=== PATIENT | female | born 1945 | race Caucasian/White ===

== ENCOUNTER → 2018-09-27 | Outpatient (CLI) | payer MEDICARE, OTHER ==
[~2018-09-27] MED LIST: CYMBALTA20 MG PO; CYMBALTA60 MG PO; MOTRIN400 MG PO; PRILOSEC40 MG PO; RAMIPRIL1.25 MG PO; TRAZODONE50 MG PO
== END | disposition home or self-care (01) ==
LOC: CT 10:58
DX: K80.20 Calculus of gallbladder without cholecystitis without obstruction (principal); K57.30 Diverticulosis of large intestine without perforation or abscess without bleeding

== ENCOUNTER → 2018-10-24 | Outpatient (CLI) | payer MEDICARE, OTHER | END | disposition home or self-care (01) | LOC: US 09:57 | DX: N85.8 Other specified noninflammatory disorders of uterus (principal); R10.2 Pelvic and perineal pain ==

== ENCOUNTER → 2020-04-02 | Outpatient (CLI) | payer MEDICARE | END | disposition home or self-care (01) | LOC: MAMMO 14:33 | DX: Z12.31 Encounter for screening mammogram for malignant neoplasm of breast (principal) ==

== ENCOUNTER 2020-09-23 11:43 | Emergency (ER) | payer MEDICARE ==
[~2020-09-23] VITALS: Wt 81.6 kg
[~2020-09-23 11:43] MED LIST changes: +TRAZODONE100 MG PO; -TRAZODONE50 MG PO
[2020-09-23 12:12] LABS: BASO # 0.1 10*3/uL (0.0-0.1); BASO % 0.7 % (0.0-1.0); EOS # 0.3 10*3/uL (0.0-0.4); EOS % 3.9 % (1.0-4.0); LYMPH # 2.4 10*3/uL (1.3-4.4); MEAN CELL VOLUME 89.2 fl (81.0-99.0); MEAN CORPUSCULAR HGB 29.1 pg (27.0-31.0); MEAN CORPUSCULAR HGB CONC 32.6 g/dl (33.0-37.0); MEAN PLATELET VOLUME 8.7 fl (9.6-12.3); MONO # 0.8 10*3/uL (0.1-1.0); MONO % 9.5 % (3.0-9.0); NEUT # 4.5 10*3/uL (2.3-7.9); NEUT % 55.3 % (47.0-73.0); PLATELET COUNT AUTOMATED 363 10*3/uL (130-400); RED BLOOD COUNT 4.71 10*6/uL (4.10-5.10); RED CELL DISTRI WIDTH 12.9 % (0-14.5); WHITE BLOOD COUNT 8.1 10*3/uL (4.8-10.8)
[2020-09-23 12:26] LABS: ACT PARTIAL THROMBO TIME 25.5 SECONDS (20.0-32.1); INTERNATIONAL NORM RATIO 1.2 (2.0-3.5)
[2020-09-23 12:34] LABS: ALBUMIN 3.6 gm/dl (3.1-4.5); ALKALINE PHOSPHATASE 87 U/L (45-117); BUN 27 mg/dl (7-24); CHLORIDE 109 mmol/L (98-107); CREATININE 0.99 mg/dL (0.55-1.02); POTASSIUM 4.3 mmol/L (3.5-5.1); SGOT/AST 21 IU/L (3-35); SGPT/ALT 24 U/L (12-78); SODIUM 139 mmol/L (136-145); TOTAL PROTEIN 7.5 gm/dL (6.4-8.2)
[2020-09-23 12:35] LABS: TROPONIN I < 0.015 ng/ml (<0.045)
[2020-09-23] MEDS ORDERED: ULTRAM50 MG PO (15:21)
[2020-11-01] MEDS ORDERED: LEVOTHYROXINE25 MCG PO (09:48)
[2020-11-01] MEDS ORDERED: HYDROCODON-ACE1 EACH PO (09:49)
[2020-11-01] MEDS ORDERED: ZESTRIL10 MG PO (09:50)
[2020-11-01] MEDS ORDERED: Coumadin3 MG PO (09:50)
== END 2020-09-23 15:29 | disposition home or self-care (01) ==
LOC: ED 11:43
PROVIDERS: Emergency Medicine
DX: G89.29 Other chronic pain (principal); R07.89 Other chest pain; R06.02 Shortness of breath; I10 Essential (primary) hypertension; Z86.711 Personal history of pulmonary embolism; Z79.01 Long term (current) use of anticoagulants; M79.7 Fibromyalgia; Z88.0 Allergy status to penicillin; Z88.2 Allergy status to sulfonamides; Z88.8 Allergy status to other drugs, medicaments and biological substances; Z79.899 Other long term (current) drug therapy

== ENCOUNTER → 2020-11-01 | Outpatient (CLI) | payer MEDICARE ==
[~2020-11-01] MED LIST changes: +CIPRO500 MG PO; +COLACE100 MG PO; +Coumadin3 MG PO; +ELIQUIS2.5 M1 PO; +HYDROCODON-ACE1 EACH PO; +LEVOTHYROXINE25 MCG PO; +PANTOPRAZOLE SO40 MG PO; +PERCOCET 5-3251 EACH PO; +PHENERGAN25 M3 PO; +ULTRAM50 MG PO; +ZESTRIL10 MG PO; +ZOFRAN4 MG PO
== END | disposition home or self-care (01) ==
LOC: CARD 00:11
PROVIDERS: ATTEND Internal Medicine Cardiovascular Disease
DX: R07.9 Chest pain, unspecified (principal); R94.31 Abnormal electrocardiogram [ECG] [EKG]

== ENCOUNTER 2020-12-28 19:14 | Inpatient (IN) | payer MEDICARE ==
[~2020-12-28] VITALS: Ht 165.1 cm; Wt 91.8 kg
[~2020-12-28 19:14] MED LIST changes: -CIPRO500 MG PO; -COLACE100 MG PO; -ELIQUIS2.5 M1 PO; -PANTOPRAZOLE SO40 MG PO; -PERCOCET 5-3251 EACH PO; -PHENERGAN25 M3 PO; -ZOFRAN4 MG PO
[2020-12-28 19:15] VITALS: BP 162/60
[2020-12-28 20:03] LABS: HEMATOCRIT 43.8 % (37.0-47.0); MEAN CORPUSCULAR HGB 29.1 pg (27.0-31.0); MEAN CORPUSCULAR HGB CONC 32.6 g/dl (33.0-37.0); MEAN PLATELET VOLUME 8.9 fl (9.6-12.3); PLATELET COUNT AUTOMATED 298 10*3/uL (130-400); RED BLOOD COUNT 4.92 10*6/uL (4.10-5.10); RED CELL DISTRI WIDTH 13.3 % (0-14.5); WHITE BLOOD COUNT 12.4 10*3/uL (4.8-10.8)
[2020-12-28 20:13] LABS: INTERNATIONAL NORM RATIO 2.7 (2.0-3.5)
[2020-12-28 20:19] LABS: ALBUMIN 3.2 gm/dl (3.1-4.5); ALKALINE PHOSPHATASE 81 U/L (45-117); BUN 26 mg/dl (7-24); CHLORIDE 108 mmol/L (98-107); CREATININE 1.04 mg/dL (0.55-1.02); LIPASE 53 U/L (73-393); SGOT/AST 13 IU/L (3-35); SGPT/ALT 20 U/L (12-78); SODIUM 139 mmol/L (136-145); TOTAL PROTEIN 6.7 gm/dL (6.4-8.2)
[2020-12-28 20:20] LABS: ATYPICAL LYMPHS 1 % (0-0); PLATELET SUFFICIENCY NORMAL (NORMAL); TOTAL CELLS COUNTED 100 #CELLS
[2020-12-28 20:50] VITALS: BP 136/64
[2020-12-28 21:06] LABS: BILIRUBIN 1+ (Negative); BLOOD 1+ (Negative); CLARITY Cloudy (Clear); COLOR Dark Yellow (Yellow); GLUCOSE Negative (Negative); KETONE Trace (Negative); LEUKO ESTERASE 1+ (Negative); NITRITE Positive (Negative); PH 5.5 (4.5-8.0); SPECIFIC GRAVITY 1.025 (1.001-1.030)
[2020-12-28 21:13] LABS: BACTERIA 2+; MUCOUS TRACE
[2020-12-28 22:00] VITALS: BP 153/69
[2020-12-29] VITALS: BP 132/54
[2020-12-29 02:46] LABS: BASO % 0.2 % (0.0-1.0); EOS # 0.1 10*3/uL (0.0-0.4); EOS % 1.5 % (1.0-4.0); LYMPH # 0.7 10*3/uL (1.3-4.4); LYMPH % 8.9 % (27.0-41.0); MEAN CELL VOLUME 89.9 fl (81.0-99.0); MEAN CORPUSCULAR HGB 29.2 pg (27.0-31.0); MEAN CORPUSCULAR HGB CONC 32.5 g/dl (33.0-37.0); MEAN PLATELET VOLUME 8.7 fl (9.6-12.3); MONO # 0.5 10*3/uL (0.1-1.0); MONO % 5.6 % (3.0-9.0); NEUT # 6.9 10*3/uL (2.3-7.9); NEUT % 83.4 % (47.0-73.0); PLATELET COUNT AUTOMATED 257 10*3/uL (130-400); RED BLOOD COUNT 4.45 10*6/uL (4.10-5.10); RED CELL DISTRI WIDTH 13.4 % (0-14.5); WHITE BLOOD COUNT 8.2 10*3/uL (4.8-10.8)
[2020-12-29 03:01] LABS: ALBUMIN 2.9 gm/dl (3.1-4.5); ALKALINE PHOSPHATASE 71 U/L (45-117); BUN 21 mg/dl (7-24); CHLORIDE 108 mmol/L (98-107); CHOLESTEROL 146 mg/dL (<200); CREATININE 0.87 mg/dL (0.55-1.02); HDL CHOLESTEROL 61 mg/dl (40-60); LDL CHOLESTEROL 56 mg/dL (9-159); POTASSIUM 3.8 mmol/L (3.5-5.1); SGOT/AST 14 IU/L (3-35); SGPT/ALT 22 U/L (12-78); SODIUM 139 mmol/L (136-145); TOTAL PROTEIN 6.2 gm/dL (6.4-8.2); TRIGLYCERIDES 143 mg/dl (<150); VLDL CHOLESTEROL 29 mg/dL (6-40)
[2020-12-29 03:02] LABS: ACT PARTIAL THROMBO TIME 46.7 SECONDS (20.0-32.1); FREE T4 0.93 ng/dl (0.76-1.46); INTERNATIONAL NORM RATIO 2.7 (2.0-3.5)
[2020-12-29] MEDS ORDERED: PANTOPRAZOLE SO40 MG PO (06:07)
[2020-12-29 06:26] LABS: VITAMIN D, 25-HYDROXY 31.5 ng/mL (30-100)
[2020-12-29 08:00] VITALS: BP 137/49
[2020-12-29 12:00] VITALS: BP 118/50
[2020-12-29 16:00] VITALS: BP 101/49
[2020-12-29 20:00] VITALS: BP 153/66
[2020-12-30] VITALS: BP 133/54
[2020-12-30 06:25] LABS: BASO % 0.5 % (0.0-1.0); EOS # 0.3 10*3/uL (0.0-0.4); EOS % 4.7 % (1.0-4.0); HEMATOCRIT 39.7 % (37.0-47.0); LYMPH # 1.4 10*3/uL (1.3-4.4); LYMPH % 23.3 % (27.0-41.0); MEAN CELL VOLUME 91.1 fl (81.0-99.0); MEAN CORPUSCULAR HGB 29.4 pg (27.0-31.0); MEAN CORPUSCULAR HGB CONC 32.2 g/dl (33.0-37.0); MEAN PLATELET VOLUME 9.7 fl (9.6-12.3); MONO # 0.6 10*3/uL (0.1-1.0); MONO % 10.5 % (3.0-9.0); NEUT # 3.5 10*3/uL (2.3-7.9); NEUT % 60.5 % (47.0-73.0); PLATELET COUNT AUTOMATED 255 10*3/uL (130-400); RED BLOOD COUNT 4.36 10*6/uL (4.10-5.10); RED CELL DISTRI WIDTH 13.7 % (0-14.5); WHITE BLOOD COUNT 5.8 10*3/uL (4.8-10.8)
[2020-12-30 06:32] LABS: BUN 17 mg/dl (7-24); CHLORIDE 110 mmol/L (98-107); CREATININE 0.85 mg/dL (0.55-1.02); POTASSIUM 4.2 mmol/L (3.5-5.1); SODIUM 140 mmol/L (136-145)
[2020-12-30 06:58] LABS: INTERNATIONAL NORM RATIO 1.8 (2.0-3.5)
[2020-12-30 08:00] VITALS: BP 132/53
[2020-12-30 12:00] VITALS: BP 142/79
[2021-02-04] MEDS ORDERED: ELIQUIS2.5 M1 PO (11:25)
[2021-02-06] MEDS ORDERED: ZOFRAN4 MG PO (09:18)
[2021-02-06] MEDS ORDERED: COLACE100 MG PO (09:18)
[2021-02-06] MEDS ORDERED: PERCOCET 5-3251 EACH PO (09:18)
== END 2020-12-30 15:24 | disposition home or self-care (01) | DRG 872 ==
LOC: ED 19:14 → 5E 21:34 → EDHOLD 21:34 → 5E 22:15
PROVIDERS: Internal Medicine; Student in an Organized Health Care Education/Training Program; ADMIT Internal Medicine; ATTEND Internal Medicine
DX: A41.9 Sepsis, unspecified organism (principal); N39.0 Urinary tract infection, site not specified; R65.20 Severe sepsis without septic shock; E03.9 Hypothyroidism, unspecified; K21.9 Gastro-esophageal reflux disease without esophagitis; K80.20 Calculus of gallbladder without cholecystitis without obstruction; E78.2 Mixed hyperlipidemia; M79.7 Fibromyalgia; I10 Essential (primary) hypertension; G47.00 Insomnia, unspecified; Z90.49 Acquired absence of other specified parts of digestive tract; Z88.0 Allergy status to penicillin; Z88.2 Allergy status to sulfonamides; Z88.8 Allergy status to other drugs, medicaments and biological substances; Z79.1 Long term (current) use of non-steroidal anti-inflammatories (NSAID); Z79.899 Other long term (current) drug therapy; Z79.01 Long term (current) use of anticoagulants; Z68.33 Body mass index [BMI] 33.0-33.9, adult

== ENCOUNTER 2021-01-02 11:14 | Emergency (ER) | payer MEDICARE ==
[~2021-01-02] VITALS: Ht 165.1 cm; Wt 86.2 kg
[~2021-01-02 11:14] MED LIST changes: +PANTOPRAZOLE SO40 MG PO
[2021-01-02 11:52] LABS: BASO % 0.6 % (0.0-1.0); EOS # 0.3 10*3/uL (0.0-0.4); LYMPH # 2.5 10*3/uL (1.3-4.4); LYMPH % 38.2 % (27.0-41.0); MEAN CELL VOLUME 89.3 fl (81.0-99.0); MEAN CORPUSCULAR HGB CONC 32.5 g/dl (33.0-37.0); MEAN PLATELET VOLUME 8.7 fl (9.6-12.3); MONO # 0.4 10*3/uL (0.1-1.0); MONO % 6.6 % (3.0-9.0); NEUT # 3.3 10*3/uL (2.3-7.9); NEUT % 50.3 % (47.0-73.0); PLATELET COUNT AUTOMATED 281 10*3/uL (130-400); RED BLOOD COUNT 4.48 10*6/uL (4.10-5.10); RED CELL DISTRI WIDTH 13.2 % (0-14.5); WHITE BLOOD COUNT 6.5 10*3/uL (4.8-10.8)
[2021-01-02 12:03] LABS: ACT PARTIAL THROMBO TIME 41.6 SECONDS (20.0-32.1); INTERNATIONAL NORM RATIO 2.2 (2.0-3.5)
[2021-01-02 12:08] LABS: ALBUMIN 3.3 gm/dl (3.1-4.5); ALKALINE PHOSPHATASE 74 U/L (45-117); BUN 18 mg/dl (7-24); CHLORIDE 107 mmol/L (98-107); CREATININE 0.94 mg/dL (0.55-1.02); LIPASE 75 U/L (73-393); POTASSIUM 5.1 mmol/L (3.5-5.1); SGOT/AST 14 IU/L (3-35); SGPT/ALT 24 U/L (12-78); SODIUM 138 mmol/L (136-145); TOTAL PROTEIN 6.7 gm/dL (6.4-8.2); TROPONIN I < 0.015 ng/ml (<0.045)
[2021-01-02] MEDS ORDERED: PERCOCET 5-3251 EACH PO (15:03)
[2021-01-02] MEDS ORDERED: CIPRO500 MG PO (15:03)
[2021-01-02] MEDS ORDERED: PHENERGAN25 M3 PO (15:03)
[2021-02-04] MEDS ORDERED: ELIQUIS2.5 M1 PO (11:25)
[2021-02-06] MEDS ORDERED: PERCOCET 5-3251 EACH PO (09:18)
[2021-02-06] MEDS ORDERED: COLACE100 MG PO (09:18)
[2021-02-06] MEDS ORDERED: ZOFRAN4 MG PO (09:18)
== END 2021-01-02 15:08 | disposition home or self-care (01) ==
LOC: ED 11:14
PROVIDERS: Emergency Medicine
DX: N39.0 Urinary tract infection, site not specified (principal); Z88.0 Allergy status to penicillin; Z88.2 Allergy status to sulfonamides; Z88.8 Allergy status to other drugs, medicaments and biological substances; Z79.899 Other long term (current) drug therapy; Z79.01 Long term (current) use of anticoagulants; Z90.49 Acquired absence of other specified parts of digestive tract; Z98.890 Other specified postprocedural states

== ENCOUNTER → 2021-02-03 | Outpatient (CLI) | payer MEDICARE ==
[~2021-02-03] MED LIST changes: +CIPRO500 MG PO; +COLACE100 MG PO; +ELIQUIS2.5 M1 PO; +PERCOCET 5-3251 EACH PO; +PHENERGAN25 M3 PO; +ZOFRAN4 MG PO
== END | disposition home or self-care (01) ==
LOC: COVID19 12:49
PROVIDERS: ATTEND Internal Medicine
DX: Z20.822 Contact with and (suspected) exposure to COVID-19 (principal)

== ENCOUNTER → 2021-02-06 | Day surgery (SDC) | payer MEDICARE ==
[2021-02-04 11:45] VITALS: BP 139/61
[~2021-02-06] VITALS: Ht 165.1 cm; Wt 81.6 kg
[2021-02-06 07:28] VITALS: BP 130/79
[2021-02-06 09:23] VITALS: BP 159/66
[2021-02-06 09:38] VITALS: BP 143/64
[2021-02-06 09:53] VITALS: BP 139/61
[2021-02-06 10:08] VITALS: BP 148/59
[2021-02-06 10:23] VITALS: BP 141/60
== END | disposition home or self-care (01) ==
LOC: SDC 02-03 13:15
PROVIDERS: ATTEND Surgery
DX: K80.12 Calculus of gallbladder with acute and chronic cholecystitis without obstruction (principal); I10 Essential (primary) hypertension; M79.7 Fibromyalgia; E03.9 Hypothyroidism, unspecified; K59.00 Constipation, unspecified; Z86.711 Personal history of pulmonary embolism; Z96.651 Presence of right artificial knee joint; Z98.890 Other specified postprocedural states; Z88.0 Allergy status to penicillin; Z88.2 Allergy status to sulfonamides; Z88.8 Allergy status to other drugs, medicaments and biological substances

== ENCOUNTER 2021-04-23 11:21 | Emergency (ER) | payer MEDICARE ==
[~2021-04-23] VITALS: Ht 165.1 cm; Wt 95.3 kg
[2021-04-23 11:39] LABS: BASO # 0.1 10*3/uL (0.0-0.1); BASO % 0.9 % (0.0-1.0); EOS # 0.3 10*3/uL (0.0-0.4); EOS % 3.4 % (1.0-4.0); HEMATOCRIT 42.2 % (37.0-47.0); LYMPH # 2.5 10*3/uL (1.3-4.4); LYMPH % 32.5 % (27.0-41.0); MEAN CELL VOLUME 90.4 fl (81.0-99.0); MEAN CORPUSCULAR HGB 29.8 pg (27.0-31.0); MEAN CORPUSCULAR HGB CONC 32.9 g/dl (33.0-37.0); MEAN PLATELET VOLUME 8.8 fl (9.6-12.3); MONO # 0.6 10*3/uL (0.1-1.0); MONO % 7.9 % (3.0-9.0); NEUT # 4.2 10*3/uL (2.3-7.9); NEUT % 54.8 % (47.0-73.0); PLATELET COUNT AUTOMATED 310 10*3/uL (130-400); RED BLOOD COUNT 4.67 10*6/uL (4.10-5.10); RED CELL DISTRI WIDTH 13.7 % (0-14.5); WHITE BLOOD COUNT 7.7 10*3/uL (4.8-10.8)
[2021-04-23 11:48] LABS: INTERNATIONAL NORM RATIO 0.9 (2.0-3.5)
[2021-04-23 12:00] LABS: ALBUMIN 3.6 gm/dl (3.1-4.5); ALKALINE PHOSPHATASE 98 U/L (45-117); BUN 21 mg/dl (7-24); CHLORIDE 108 mmol/L (98-107); CREATININE 0.95 mg/dL (0.55-1.02); POTASSIUM 4.3 mmol/L (3.5-5.1); SGOT/AST 10 IU/L (3-35); SGPT/ALT 16 U/L (12-78); SODIUM 135 mmol/L (136-145); TOTAL PROTEIN 7.2 gm/dL (6.4-8.2)
[2021-04-23 12:01] LABS: TROPONIN I < 0.015 ng/ml (<0.045)
[2021-04-23] MEDS ORDERED: Coumadin3 MG PO (12:53)
== END 2021-04-23 13:00 | disposition home or self-care (01) ==
LOC: ED 11:21
PROVIDERS: Family Medicine
DX: R07.89 Other chest pain (principal); T45.515A Adverse effect of anticoagulants, initial encounter; Z98.890 Other specified postprocedural states; Z90.49 Acquired absence of other specified parts of digestive tract; Z79.899 Other long term (current) drug therapy; Z88.0 Allergy status to penicillin; Z88.2 Allergy status to sulfonamides; Z88.6 Allergy status to analgesic agent; Z86.711 Personal history of pulmonary embolism; Y92.89 Other specified places as the place of occurrence of the external cause

== ENCOUNTER → 2023-09-17 | Outpatient (CLI) | payer MEDICARE | END | disposition home or self-care (01) | LOC: RAD 09:20 | PROVIDERS: ATTEND Internal Medicine | DX: Z13.820 Encounter for screening for osteoporosis (principal); S72.092A Other fracture of head and neck of left femur, initial encounter for closed fracture; M81.0 Age-related osteoporosis without current pathological fracture; X58.XXXA Exposure to other specified factors, initial encounter; Y93.89 Activity, other specified; Y92.89 Other specified places as the place of occurrence of the external cause; Y99.8 Other external cause status ==

== ENCOUNTER 2024-02-01 14:33 | Emergency (ER) | payer MEDICARE ==
[2024-02-01 14:59] LABS: BASO # 0.1 10*3/uL (0.0-0.1); BASO % 0.8 % (0.0-1.0); EOS # 0.2 10*3/uL (0.0-0.4); HEMATOCRIT 41.6 % (37.0-47.0); LYMPH # 2.8 10*3/uL (1.3-4.4); LYMPH % 38.5 % (27.0-41.0); MEAN CELL VOLUME 93.3 fl (81.0-99.0); MEAN CORPUSCULAR HGB 29.8 pg (27.0-31.0); MEAN PLATELET VOLUME 8.9 fl (9.6-12.3); MONO # 0.6 10*3/uL (0.1-1.0); MONO % 7.7 % (3.0-9.0); NEUT # 3.6 10*3/uL (2.3-7.9); NEUT % 49.6 % (47.0-73.0); PLATELET COUNT AUTOMATED 280 10*3/uL (130-400); RED BLOOD COUNT 4.46 10*6/uL (4.10-5.10); RED CELL DISTRI WIDTH 13.1 % (0-14.5); WHITE BLOOD COUNT 7.3 10*3/uL (4.8-10.8)
[2024-02-01 15:10] LABS: ACT PARTIAL THROMBO TIME 25.9 SECONDS (20.0-32.1)
[2024-02-01 15:32] LABS: ALKALINE PHOSPHATASE 85 U/L (46-116); BUN 19 mg/dl (9-23); CHLORIDE 105 mmol/L (98-107); LIPASE 37 U/L (12-53); SGPT/ALT 8 U/L (5-49); TOTAL PROTEIN 6.6 gm/dL (6.0-8.0)
[2024-02-01] MEDS ORDERED: diphenhydrAMINE hydrochloride 50 MG/ML VIAL IV ONE (15:35)
[2024-02-01] MEDS ORDERED: Dexamethasone Sodium Phospha 20 MG/5 ML VIAL IV ONE (15:35)
[2024-02-01] MEDS ORDERED: Acetaminophen/Hydrocodone ES 7.5/325 tablet PO ONE (16:00)
== END 2024-02-01 17:24 | disposition home or self-care (01) ==
LOC: ED 14:33
PROVIDERS: Internal Medicine
DX: R07.89 Other chest pain (principal); T50.905A Adverse effect of unspecified drugs, medicaments and biological substances, initial encounter; R06.02 Shortness of breath; Z88.0 Allergy status to penicillin; Z88.2 Allergy status to sulfonamides; Z88.8 Allergy status to other drugs, medicaments and biological substances; Z79.01 Long term (current) use of anticoagulants; Z79.899 Other long term (current) drug therapy; Z98.890 Other specified postprocedural states; Z90.49 Acquired absence of other specified parts of digestive tract; Z96.651 Presence of right artificial knee joint; Y92.89 Other specified places as the place of occurrence of the external cause

== ENCOUNTER 2024-06-19 10:15 | Observation (INO) | payer MEDICARE ==
[~2024-06-19] VITALS: Ht 165.1 cm; Wt 94.5 kg
[2024-06-19 10:18] VITALS: BP 149/50
[2024-06-19] MEDS ORDERED: SODIUM CHLORIDE 0.9% 1,000 ML IV ONE (10:30)
[2024-06-19 10:51] LABS: BASO # 0.1 10*3/uL (0.0-0.1); BASO % 1.1 % (0.0-1.0); EOS # 0.3 10*3/uL (0.0-0.4); HEMATOCRIT 40.8 % (37.0-47.0); LYMPH # 2.1 10*3/uL (1.3-4.4); LYMPH % 34.7 % (27.0-41.0); MEAN CELL VOLUME 93.2 fl (81.0-99.0); MEAN CORPUSCULAR HGB 29.9 pg (27.0-31.0); MEAN CORPUSCULAR HGB CONC 32.1 g/dl (33.0-37.0); MEAN PLATELET VOLUME 10.3 fl (9.6-12.3); MONO # 0.6 10*3/uL (0.1-1.0); NEUT # 3.1 10*3/uL (2.3-7.9); NEUT % 49.7 % (47.0-73.0); PLATELET COUNT AUTOMATED 324 10*3/uL (130-400); RED BLOOD COUNT 4.38 10*6/uL (4.10-5.10); RED CELL DISTRI WIDTH 13.4 % (0-14.5); WHITE BLOOD COUNT 6.1 10*3/uL (4.8-10.8)
[2024-06-19 11:05] LABS: BILIRUBIN Negative (Negative); BLOOD Negative (Negative); CLARITY Cloudy (Clear); COLOR Yellow (Yellow); GLUCOSE Negative (Negative); KETONE Trace (Negative); LEUKO ESTERASE 1+ (Negative); NITRITE Negative (Negative); PH 5.5 (4.5-8.0); SPECIFIC GRAVITY 1.025 (1.001-1.030)
[2024-06-19 11:13] LABS: BACTERIA 2+; EPITHELIAL CELLS 16-20; MUCOUS 1+
[2024-06-19] MEDS ORDERED: HYDROCODONE-AC1 EAC2 PO (11:32)
[2024-06-19] MEDS ORDERED: NEURONTIN300 MG PO (11:33)
[2024-06-19] MEDS ORDERED: MELOXICAM15 MG PO (11:34)
[2024-06-19] MEDS ORDERED: VITAMIN D250 MCG PO (11:37)
[2024-06-19 11:38] LABS: ACT PARTIAL THROMBO TIME 25.9 SECONDS (20.0-32.1)
[2024-06-19 11:48] LABS: ALKALINE PHOSPHATASE 87 U/L (46-116); BUN 18 mg/dl (9-23); CHLORIDE 107 mmol/L (98-107); LIPASE 28 U/L (12-53); POTASSIUM 4.3 mmol/L (3.4-5.1); SGPT/ALT 8 U/L (5-49)
[2024-06-19] MEDS ORDERED: Ceftriaxone Sodium 1 GM/10 ML SYR IV ONE (12:35)
[2024-06-19] MEDS ORDERED: MIRALAX119 GM PO (13:27)
[2024-06-19] MEDS ORDERED: ACETAMINOPHEN 325 MG TAB PO PRN (13:50)
[2024-06-19] MEDS ORDERED: BISACODYL 10 MG SUPP R PRN (13:50)
[2024-06-19] MEDS ORDERED: Ondansetron Hydrochloride 4 MG/2 ML VIAL IV PRN (13:50)
[2024-06-19] MEDS ORDERED: BISACODYL 5 MG TAB PO PRN (13:50)
[2024-06-19] MEDS ORDERED: ACETAMINOPHEN 650 MG SUPP R PRN (13:50)
[2024-06-19] MEDS ORDERED: Magnesium Hydroxide 30 ML UDC PO PRN (13:50)
[2024-06-19 14:12] VITALS: BP 175/86
[2024-06-19] MEDS ORDERED: Technetium Tc 99M Tetrofosmi 0.23 MG KIT IJ SCH (15:15)
[2024-06-19 15:48] VITALS: BP 148/65
[2024-06-19 15:58] VITALS: BP 150/71
[2024-06-19] MEDS ORDERED: Acetaminophen/Hydrocodone ES 7.5/325 tablet PO SCH (16:41)
[2024-06-19 20:00] VITALS: BP 145/58
[2024-06-19] MEDS ORDERED: GABAPENTIN 300 MG CAP PO SCH (22:00)
[2024-06-19] MEDS ORDERED: LISINOPRIL 10 MG TAB PO SCH (22:00)
[2024-06-19] MEDS ORDERED: Meloxicam 15 MG TAB PO SCH (22:00)
[2024-06-20] VITALS: BP 139/69
[2024-06-20] MEDS ORDERED: Regadenoson 0.4 MG/5 ML SYR IV ONE (05:50)
[2024-06-20 06:31] LABS: BASO # 0.1 10*3/uL (0.0-0.1); BASO % 1.1 % (0.0-1.0); EOS # 0.4 10*3/uL (0.0-0.4); EOS % 5.8 % (1.0-4.0); LYMPH # 1.9 10*3/uL (1.3-4.4); LYMPH % 30.7 % (27.0-41.0); MEAN CELL VOLUME 92.8 fl (81.0-99.0); MEAN CORPUSCULAR HGB 29.6 pg (27.0-31.0); MEAN PLATELET VOLUME 8.9 fl (9.6-12.3); MONO # 0.6 10*3/uL (0.1-1.0); NEUT # 3.3 10*3/uL (2.3-7.9); NEUT % 53.1 % (47.0-73.0); PLATELET COUNT AUTOMATED 281 10*3/uL (130-400); RED BLOOD COUNT 4.42 10*6/uL (4.10-5.10); RED CELL DISTRI WIDTH 13.2 % (0-14.5); WHITE BLOOD COUNT 6.2 10*3/uL (4.8-10.8)
[2024-06-20 06:40] LABS: ACT PARTIAL THROMBO TIME 25.5 SECONDS (20.0-32.1)
[2024-06-20 07:01] LABS: BUN 15 mg/dl (9-23); CHLORIDE 108 mmol/L (98-107); POTASSIUM 4.5 mmol/L (3.4-5.1)
[2024-06-20 07:18] LABS: VITAMIN D, 25-HYDROXY 41.7 ng/mL (30-100)
[2024-06-20 08:00] VITALS: BP 150/61
[2024-06-20] MEDS ORDERED: Enoxaparin Sodium 40 MG/0.4 ML SYR SC SCH (10:00)
[2024-06-20] MEDS ORDERED: Cholecalciferol 2,000 UNIT TABLET (50 MCG) PO SCH (10:00)
[2024-06-20] MEDS ORDERED: Levothyroxine Sodium 25 MCG TAB PO SCH (10:00)
[2024-06-20] MEDS ORDERED: Duloxetine Hydrochloride 60 MG CAP PO SCH (10:00)
[2024-06-20] MEDS ORDERED: Polyethylene Glycol 3350 17 GM PACKET PO SCH (10:00)
[2024-06-20 12:00] VITALS: BP 141/54
[2024-06-20] MEDS ORDERED: Ceftriaxone Sodium 10 ML IV SCH (12:00)
[2024-06-20] MEDS ORDERED: CEPHALEXIN500 M1 PO (15:32)
[2024-06-20] MEDS ORDERED: cloNIDine Hydrochloride 0.1 MG TAB PO ONE (18:25)
== END 2024-06-20 18:36 | disposition home or self-care (01) ==
LOC: ED 10:15 → EDHOLD 13:05 → 4E 15:04
PROVIDERS: Internal Medicine; ADMIT Internal Medicine; ATTEND Internal Medicine
DX: N39.0 Urinary tract infection, site not specified (principal); R07.89 Other chest pain; R53.1 Weakness; R73.9 Hyperglycemia, unspecified; I10 Essential (primary) hypertension; K21.9 Gastro-esophageal reflux disease without esophagitis; E03.9 Hypothyroidism, unspecified; G89.4 Chronic pain syndrome; Z79.899 Other long term (current) drug therapy

== ENCOUNTER 2024-09-05 10:03 | Emergency (ER) | payer MEDICARE ==
[~2024-09-05] VITALS: Ht 162.5 cm; Wt 90.7 kg
[~2024-09-05 10:03] MED LIST changes: +CEPHALEXIN500 M1 PO; +HYDROCODONE-AC1 EAC2 PO; +MELOXICAM15 MG PO; +MIRALAX119 GM PO; +NEURONTIN300 MG PO; +VITAMIN D250 MCG PO
[2024-09-05] MEDS ORDERED: ACETAMINOPHEN 325 MG TAB PO ONE (10:50)
[2024-09-05 11:00] LABS: BASO # 0.1 10*3/uL (0.0-0.1); BASO % 0.9 % (0.0-1.0); EOS # 0.2 10*3/uL (0.0-0.4); EOS % 2.5 % (1.0-4.0); HEMATOCRIT 41.9 % (37.0-47.0); MEAN CELL VOLUME 93.9 fl (81.0-99.0); MEAN CORPUSCULAR HGB 29.6 pg (27.0-31.0); MEAN CORPUSCULAR HGB CONC 31.5 g/dl (33.0-37.0); MEAN PLATELET VOLUME 8.7 fl (9.6-12.3); MONO # 0.5 10*3/uL (0.1-1.0); MONO % 8.1 % (3.0-9.0); NEUT # 3.8 10*3/uL (2.3-7.9); NEUT % 58.8 % (47.0-73.0); PLATELET COUNT AUTOMATED 281 10*3/uL (130-400); RED BLOOD COUNT 4.46 10*6/uL (4.10-5.10); RED CELL DISTRI WIDTH 13.8 % (0-14.5); WHITE BLOOD COUNT 6.4 10*3/uL (4.8-10.8)
[2024-09-05] MEDS ORDERED: ASPIRIN, CHEWABLE 81 MG TAB PO ONE (11:10)
[2024-09-05 11:21] LABS: ALKALINE PHOSPHATASE 84 U/L (46-116); BUN 17 mg/dl (9-23); CHLORIDE 104 mmol/L (98-107); POTASSIUM 4.6 mmol/L (3.4-5.1); SGPT/ALT 11 U/L (5-49); TOTAL PROTEIN 6.5 gm/dL (6.0-8.0)
[2024-09-05] MEDS ORDERED: Acetaminophen/Hydrocodone 5 MG/325 MG TABLET PO ONE (12:10)
== END 2024-09-05 13:18 | disposition home or self-care (01) ==
LOC: ED 10:03
PROVIDERS: Nurse Practitioner
DX: I10 Essential (primary) hypertension (principal); G89.29 Other chronic pain; M54.6 Pain in thoracic spine; E03.9 Hypothyroidism, unspecified; E78.00 Pure hypercholesterolemia, unspecified; M79.7 Fibromyalgia; Z88.0 Allergy status to penicillin; Z88.2 Allergy status to sulfonamides; Z88.6 Allergy status to analgesic agent; Z90.49 Acquired absence of other specified parts of digestive tract

== ENCOUNTER → 2025-01-18 | Outpatient (CLI) | payer MEDICARE ==
[2025-01-18 15:15] LABS: BASO # 0.1 10*3/uL (0.0-0.1); BASO % 0.7 % (0.0-1.0); EOS # 0.3 10*3/uL (0.0-0.4); HEMATOCRIT 42.1 % (37.0-47.0); MEAN CELL VOLUME 90.7 fl (81.0-99.0); MEAN CORPUSCULAR HGB 29.3 pg (27.0-31.0); MEAN CORPUSCULAR HGB CONC 32.3 g/dl (33.0-37.0); MEAN PLATELET VOLUME 8.9 fl (9.6-12.3); MONO # 0.6 10*3/uL (0.1-1.0); MONO % 7.4 % (3.0-9.0); NEUT # 4.8 10*3/uL (2.3-7.9); NEUT % 55.5 % (47.0-73.0); PLATELET COUNT AUTOMATED 269 10*3/uL (130-400); RED BLOOD COUNT 4.64 10*6/uL (4.10-5.10); RED CELL DISTRI WIDTH 13.7 % (0-14.5); WHITE BLOOD COUNT 8.6 10*3/uL (4.8-10.8)
[2025-01-18 15:19] LABS: BILIRUBIN Negative (Negative); BLOOD Negative (Negative); CLARITY Clear (Clear); COLOR Yellow (Yellow); GLUCOSE Negative (Negative); KETONE 1+ (Negative); LEUKO ESTERASE Negative (Negative); NITRITE Negative (Negative); PH 5.5 (4.5-8.0); SPECIFIC GRAVITY >= 1.030 (1.001-1.030)
[2025-01-18 15:29] LABS: ACT PARTIAL THROMBO TIME 25.1 SECONDS (20.0-32.1)
[2025-01-18 15:38] LABS: BACTERIA TRACE; RBC 0-2 rbc/hpf (0-2)
[2025-01-18 15:42] LABS: ALKALINE PHOSPHATASE 82 U/L (46-116); BUN 27 mg/dl (9-23); CHLORIDE 104 mmol/L (98-107); POTASSIUM 4.3 mmol/L (3.4-5.1); SGPT/ALT 13 U/L (5-49); TOTAL PROTEIN 6.8 gm/dL (6.0-8.0)
== END | disposition home or self-care (01) ==
LOC: US 00:26
PROVIDERS: ATTEND Orthopaedic Surgery
DX: Z01.818 Encounter for other preprocedural examination (principal); M25.552 Pain in left hip; M25.551 Pain in right hip; Z96.641 Presence of right artificial hip joint; Z86.711 Personal history of pulmonary embolism; I10 Essential (primary) hypertension; E03.9 Hypothyroidism, unspecified; E55.9 Vitamin D deficiency, unspecified; M17.0 Bilateral primary osteoarthritis of knee; G47.00 Insomnia, unspecified; Z79.899 Other long term (current) drug therapy

== ENCOUNTER → 2025-02-19 | Outpatient (CLI) | payer MEDICARE | END | disposition home or self-care (01) | LOC: US 12:05 | PROVIDERS: ATTEND Orthopaedic Surgery | DX: Z01.818 Encounter for other preprocedural examination (principal) ==

== ENCOUNTER 2025-08-24 18:48 | Emergency (ER) | payer MEDICARE ==
[~2025-08-24] VITALS: Wt 99.8 kg
[2025-08-24] MEDS ORDERED: SODIUM CHLORIDE 0.9% 1,000 ML IV ONE (19:10)
[2025-08-24] MEDS ORDERED: Promethazine Hydrochloride 25 MG/ML VIAL IV ONE (19:10)
[2025-08-24] MEDS ORDERED: HYDROmorphONE Hydrochloride 0.5 MG/0.5 ML SYRINGE IV ONE (19:10)
[2025-08-24] MEDS ORDERED: IOHEXOL 300 MG/ML 100 ML VIAL IV ONE (19:15)
[2025-08-24] MEDS ORDERED: IOHEXOL 300 MG/ML 100 ML VIAL ONE (19:39)
[2025-08-24 19:51] LABS: BASO # 0.0 10*3/uL (0.0-0.1); BASO % 0.2 % (0.0-1.0); EOS # 0.1 10*3/uL (0.0-0.4); EOS % 1.4 % (1.0-4.0); MEAN CELL VOLUME 92.0 fl (81.0-99.0); MEAN CORPUSCULAR HGB 29.8 pg (27.0-31.0); MEAN PLATELET VOLUME 8.8 fl (9.6-12.3); MONO # 0.4 10*3/uL (0.1-1.0); MONO % 3.8 % (3.0-9.0); NEUT # 8.5 10*3/uL (2.3-7.9); NEUT % 88.3 % (47.0-73.0); NUCLEATED RED BLOOD CELL 0.0 % (0.0-0.0); NUCLEATED RED BLOOD CELL 0.0 10*3/uL (0.0-0.0); PLATELET COUNT AUTOMATED 266 10*3/uL (130-400); RED CELL DISTRI WIDTH 14.3 % (0-14.5)
[2025-08-24 20:08] LABS: BUN 27 mg/dl (9-23); SGPT/ALT 14 U/L (5-49)
[2025-08-24 21:15] LABS: BILIRUBIN Negative (Negative); BLOOD Negative (Negative); CLARITY Clear (Clear); COLOR Yellow (Yellow); KETONE Trace (Negative); LEUKO ESTERASE Negative (Negative); NITRITE Negative (Negative); PH 6.5 (4.5-8.0); SPECIFIC GRAVITY >= 1.030 (1.001-1.030); UROBILINOGEN 1.0 E.U./dl (0.0-1.0)
[2025-08-24 21:21] LABS: BACTERIA 1+
[2025-08-24] MEDS ORDERED: PROTONIX40 MG PO (22:32)
[2025-08-24] MEDS ORDERED: Phenergan25 MG PO (22:32)
[2025-08-24] MEDS ORDERED: Dicyclomine Hydrochloride 20 MG/10 ML OSYR PO STA (22:33)
[2025-08-24] MEDS ORDERED: MG-AL HYDROXIDE/SIMETICONE 30 ML UDC PO STA (22:33)
== END 2025-08-24 23:15 | disposition home or self-care (01) ==
LOC: ED 18:48
PROVIDERS: Nurse Practitioner Family
DX: R10.84 Generalized abdominal pain (principal); K21.9 Gastro-esophageal reflux disease without esophagitis; R11.0 Nausea; I10 Essential (primary) hypertension; E03.9 Hypothyroidism, unspecified; Z88.0 Allergy status to penicillin; Z88.2 Allergy status to sulfonamides; Z88.6 Allergy status to analgesic agent; Z79.899 Other long term (current) drug therapy; Z98.890 Other specified postprocedural states; Z90.49 Acquired absence of other specified parts of digestive tract; Z96.651 Presence of right artificial knee joint